=== PATIENT | female | born 1980 | race American Indian/Alaskan Native ===

== ENCOUNTER 2017-12-16 17:16 | Emergency (ER) | payer OTHER ==
[2017-12-16 18:00] LABS: Basophils # (Auto) 0.1 K/mm3 (0.0-0.1); Basophils % (Auto) 1.1 % (0.0-1.8); Eosinophils # (Auto) 0.1 K/mm3 (0.0-0.4); Eosinophils % (Auto) 1.5 % (0.0-4.3); Hematocrit 47.4 % (30.3-42.9); Hemoglobin 15.7 gm/dl (10.1-14.3); Lymphocytes # (Auto) 1.9 K/mm3 (1.2-5.4); Lymphocytes % (Auto) 31.7 % (13.4-35.0); Mean Corpuscular HGB Conc 33 % (30-34); Mean Corpuscular Hemoglobin 29 pg (28-32); Mean Corpuscular Volume 86 fl (79-97); Monocytes # (Auto) 0.4 K/mm3 (0.0-0.8); Monocytes % (Auto) 6.3 % (0.0-7.3); Platelet Count 340 K/mm3 (140-440); Red Blood Count 5.49 M/mm3 (3.65-5.03); Red Cell Distribution Width 14.4 % (13.2-15.2)
[2017-12-16 18:19] LABS: BUN/Creatinine Ratio 11; Blood Urea Nitrogen 8 mg/dL (7-17); Calcium 9.7 mg/dL (8.4-10.2); Hemolysis Index 14
--- NOTE | 2017-12-16 23:56 | Emergency Department Report ---
ED Abdominal Pain HPI - General Chief Complaint: Abdominal Pain Stated Complaint: ABDOMINAL PAIN Time Seen by Provider: 12/16/17 23:43 Source: patient Mode of arrival: Ambulatory Limitations: No Limitations - History of Present Illness MD Complaint: abdominal pain -: Gradual, days(s) Location: RUQ Radiation: epigastric Migration to: no migration Severity: severe Severity scale (0 -10): 8 Quality: cramping, sharp Consistency: constant Worsens With: nothing Associated Symptoms: nausea, vomiting, constipation. denies: diarrhea - Related Data Allergies Allergy/AdvReac Type Severity Reaction Status Date / Time aspirin [From [facility]] Allergy Unknown Verified 12/16/17 17:37 citric acid Allergy Unknown Verified 12/16/17 17:37 [From [facility]] sodium bicarbonate Allergy Unknown Verified 12/16/17 17:37 [From [facility]] ED Review of Systems ROS: Stated complaint: ABDOMINAL PAIN Other details as noted in HPI Comment: All other systems reviewed and negative Constitutional: denies: chills, fever, malaise Eyes: denies: vision change ENT: denies: ear pain Respiratory: denies: shortness of breath Cardiovascular: denies: chest pain, palpitations, syncope Endocrine: no symptoms reported Gastrointestinal: abdominal pain, nausea, vomiting, constipation. denies: diarrhea Genitourinary: denies: urgency, dysuria, frequency Musculoskeletal: denies: back pain Skin: denies: rash, lesions, change in color Neurological: denies: numbness, paresthesias Psychiatric: denies: anxiety Hematological/Lymphatic: denies: easy bleeding, easy bruising ED Past Medical Hx - Past Medical History Hx Hypertension: Yes Additional medical history: heart palpitation - Surgical History Additional Surgical History: c/section x1 - Social History Smoking Status: Never Smoker ED Physical Exam - General Limitations: No Limitations General appearance: alert, in distress - Head Head exam: Present: atraumatic, normocephalic, normal inspection - Eye Eye exam: Present: normal appearance, PERRL, EOMI Pupils: Present: normal accommodation - ENT ENT exam: Present: normal exam, normal orophraynx, mucous membranes moist - Neck Neck exam: Present: normal inspection, full ROM. Absent: tenderness - Respiratory Respiratory exam: Present: normal lung sounds bilaterally. Absent: respiratory distress, wheezes, rhonchi - Cardiovascular Cardiovascular Exam: Present: regular rate, normal rhythm, normal heart sounds - GI/Abdominal GI/Abdominal exam: Present: soft, tenderness (RUQ), normal bowel sounds. Absent : guarding, rebound - Extremities Exam Extremities exam: Present: normal inspection, full ROM, normal capillary refill , pedal edema - Back Exam Back exam: Present: normal inspection, full ROM, CVA tenderness (R). Absent: tenderness, CVA tenderness (L) - Neurological Exam Neurological exam: Present: alert, oriented X3, CN II-XII intact, normal gait - Psychiatric Psychiatric exam: Present: normal affect. Absent: homicidal ideation, suicidal ideation ED Course Vital Signs 12/16/17 12/17/17 17:24 00:58 Temperature 99.3 F Pulse Rate 109 H Respiratory 18 16 Rate Blood Pressure 129/93 O2 Sat by Pulse 99 Oximetry - Reevaluation(s) Reevaluation #1: 12/17/17 01:41 Patient care was transferred to Dr Gina Joy pending transvaginal ultrasound, re-evaluation and disposition. ED Medical Decision Making - Lab Data Result diagrams: 12/16/17 17:41 12/16/17 17:41 - EKG Data -: EKG Interpreted by Me EKG shows normal: sinus rhythm Rate: normal - EKG Data When compared to previous EKG there are: previous EKG unavailable Interpretation: other (No STEMI) - Differential Diagnosis Gallstones, Kidney Stones. Critical care attestation.: If time is entered above; I have spent that time in minutes in the direct care of this critically ill patient, excluding procedure time. ED Disposition Clinical Impression: Abdominal pain Qualifiers: Abdominal location: right upper quadrant Qualified Code(s): R10.11 - Right upper quadrant pain Does the pt Need Aspirin: No Condition: Stable Instructions: Abdominal Pain (ED) Referrals: ANDRE CENTENO MD [Primary Care Provider] - 3-5 Days
[2017-12-16] MEDS ORDERED: SUBLIMAZE IV ONE (23:59)
[2017-12-17] MEDS ORDERED: NACL 0.9% 1000 ML 1,000 ML IV ONE
[2017-12-17] MEDS ORDERED: ZOFRAN IV ONE (00:04)
[2017-12-17 00:33] LABS: Alanine Aminotransferase 15 units/L (7-56); Lipase 11 units/L (13-60)
[2017-12-17 00:36] LABS: Bilirubin,Direct < 0.2 mg/dL (0-0.2)
--- NOTE | 2017-12-17 00:57 | Ultrasound Report ---
FINAL REPORT EXAM: US ABDOMEN LIMITED HISTORY: RUQ abdominal pain TECHNIQUE: Sonographic evaluation was performed of the abdomen with and without color Doppler flow. PRIORS: None. FINDINGS: The liver is normal in size and displays homogeneous parenchyma. No focal lesion or dilated intrahepatic bile ducts seen. The gallbladder demonstrates no evidence of stones and the proximal extrahepatic bile ducts are non-dilated. Evaluation the pancreas limited secondary to bowel gas. No free or loculated peritoneal collections are noted. No hydronephrosis or renal calculus. Measurements: Liver: Common bile duct: 3.1 mm Gallbladder wall: 2.8 mm Right kidney: 10.1 x 4.4 x 6.5 cm. Cortical thickness 1.6 cm. IMPRESSION: No sonographic evidence of acute cholecystitis. No obstructive uropathy or acute intra abdominal process identified.
[2017-12-17 01:32] LABS: HCG Qualitative,Urine Positive (Negative)
[2017-12-17 01:35] LABS: Bilirubin,Urine NEG (Negative); Blood,Urine NEG (Negative); Color,Urine Yellow (Yellow); Mucus,Urine FEW /HPF; Protein,Urine <15 mg/dL mg/dL (Negative); Urobilinogen,Urine < 2.0 mg/dL (<2.0)
--- NOTE | 2017-12-17 03:02 | Ultrasound Report ---
FINAL REPORT EXAM: US OB < = 14 WEEKS FETUS HISTORY: pain/vag bleeding TECHNIQUE: Transabdominal sonographic evaluation was performed of the female pelvis with and without color Doppler imaging. PRIORS: None. FINDINGS: The uterine myometrium is without focal lesion. Position within the endometrium, there is a large probable gestational sac with irregular margins and a central round echogenic structure suggestive of a yolk sac. No pole is identified. Measurements: Last menstrual period-10/17/2017. Desiccation sac: 32.0 mm Uterus: 12.1 x 5.2 x 6.3 cm. Right ovary: 2.7 x 2.1 x 2.4 cm Left ovary: Not visualized IMPRESSION: Probable gestational sac (estimated mean sac diameter 32mm) with probable yolk sac. Margins of the gestational sac appear irregular and given the size > 25 mm and absence of embryo, finding concerning for failed first trimester . Followup with OBGYN and consider short interval follow-up ultrasound. Left ovary not visualized, right unremarkable.
--- NOTE | 2017-12-17 03:05 | Ultrasound Report ---
FINAL REPORT EXAM: US OB TRANSVAGINAL HISTORY: TECHNIQUE: Transvaginal sonographic evaluation was performed of the female pelvis with and without color Doppler imaging. PRIORS: None. FINDINGS: The uterine myometrium is without focal lesion. Position within the endometrium, there is a large probable gestational sac with irregular margins and a central round echogenic structure suggestive of a yolk sac. No pole is identified. Measurements: Last menstrual period-10/17/2017. Desiccation sac: 32.0 mm Uterus: 12.1 x 5.2 x 6.3 cm. Right ovary: 2.7 x 2.1 x 2.4 cm Left ovary: Not visualized IMPRESSION: Probable gestational sac (estimated mean sac diameter 32mm) with probable yolk sac. Margins of the gestational sac appear irregular and given the size > 25 mm and absence of embryo, finding concerning for failed first trimester . Followup with OBGYN and consider short interval follow-up ultrasound. Left ovary not visualized, right unremarkable. IMPRESSION:
[2017-12-17 03:30] VITALS: BP 118/81
== END 2017-12-17 03:29 | disposition home or self-care (01) ==
LOC: ED 17:16
DX: R10.11 Right upper quadrant pain (principal); R11.2 Nausea with vomiting, unspecified; K59.00 Constipation, unspecified; I10 Essential (primary) hypertension; Z88.6 Allergy status to analgesic agent; Z88.8 Allergy status to other drugs, medicaments and biological substances
CPT/HCPCS: 36415; 76705; 76801; 76817; 80048; 80074; 81001; 81025; 83690; 84484; 84702; 85025; 93005; 93010; 96361; 96374; 96375; 99284; J2405; J3010; J7030